=== PATIENT | male | born 1975 | race Caucasian/White ===

== ENCOUNTER 2019-09-21 13:03 | Emergency (ER) | payer OTHER ==
[~2019-09-21] VITALS: Ht 170.2 cm; Wt 79.0 kg
[2019-09-21 13:04] VITALS: BP 143/99
--- NOTE | 2019-09-21 14:05 | REP ---
Four views left wrist: 09/21/2019. Indication: Wrist pain following injury. Comparison: None. Findings: There is no acute fracture, subluxation or dislocation. Bony alignment is anatomic. No erosive osseous lesions are present. Impression: No acute fracture. Electronically Signed by Joselito lLoyd DO 09/21/2019 01:58 P
[2019-09-21] MEDS ORDERED: IBUPROFEN 600 MG TAB PO ONE (14:15)
[2019-09-21] MEDS ORDERED: IBUP-1022 PO (14:18)
== END 2019-09-21 14:26 | disposition home or self-care (01) ==
LOC: M ED 13:03
DX: S63.502A Unspecified sprain of left wrist, initial encounter (principal); X50.1XXA Overexertion from prolonged static or awkward postures, initial encounter; Y92.9 Unspecified place or not applicable

== ENCOUNTER 2020-12-28 13:05 | Emergency (ER) | payer BC, OTHER ==
[~2020-12-28] VITALS: Ht 170.2 cm; Wt 74.2 kg
[~2020-12-28 13:05] MED LIST: IBUP-1022 PO
[2020-12-28] MEDS ORDERED: ONDA-83 PO (13:18)
[2020-12-28] MEDS ORDERED: FLUT22IN (13:18)
[2020-12-28] MEDS ORDERED: PANT40TA29 PO (13:18)
[2020-12-28 14:31] LABS: BASO # 0.1 10^3/uL (0.0-0.2); BASO % 1.2 % (0.0-1.0); EOS # 0.3 10^3/uL (0.0-0.5); EOS % 5.2 % (0.0-3.0); HEMATOCRIT 42.8 % (42.0-52.0); HEMOGLOBIN 14.2 g/dl (13.5-17.5); LYMPH # 1.1 10^3/uL (1.5-5.0); LYMPH % 23.1 % (24.0-44.0); MEAN CORPUSCULAR HEMOGLOBIN 30.1 pg (27.0-33.0); MEAN CORPUSCULAR HGB CONC 33.2 g/dl (32.0-36.5); MEAN CORPUSCULAR VOLUME 90.7 fl (80.0-96.0); MONO # 0.4 10^3/uL (0.0-0.8); MONO % 9.1 % (0.0-5.0); NEUTROPHILS # 2.9 10^3/uL (1.5-8.5); NEUTROPHILS % 61.2 % (36.0-66.0); PLATELET COUNT, AUTOMATED 249 10^3/uL (150-450); RED BLOOD COUNT 4.72 10^6/uL (4.30-6.10); WHITE BLOOD COUNT 4.8 10^3/uL (4.0-10.0)
[2020-12-28 14:38] LABS: ALBUMIN 4.2 GM/DL (3.2-5.2); ALT/SGPT 29 U/L (12-78); BILIRUBIN,TOTAL 0.6 MG/DL (0.2-1.0); BLOOD UREA NITROGEN 17 MG/DL (7-18); CALCIUM LEVEL 9.4 MG/DL (8.5-10.1); CARBON DIOXIDE LEVEL 29 MEQ/L (21-32); CHLORIDE LEVEL 102 MEQ/L (98-107); CREATININE FOR GFR 1.04 MG/DL (0.70-1.30); GLOMERULAR FILTRATION RATE > 60.0 (>60); GLUCOSE, FASTING 90 MG/DL (70-100); POTASSIUM SERUM 3.7 MEQ/L (3.5-5.1); SODIUM LEVEL 140 MEQ/L (136-145)
[2020-12-28] MEDS ORDERED: NYST50SS PO (15:32)
[2020-12-28] MEDS ORDERED: SUCR1TA PO (15:32)
[2020-12-28 15:35] VITALS: BP 151/61
== END 2020-12-28 16:00 | disposition home or self-care (01) ==
LOC: M ED 13:05
DX: K21.00 Gastro-esophageal reflux disease with esophagitis, without bleeding (principal); J30.2 Other seasonal allergic rhinitis

== ENCOUNTER → 2021-01-11 | Outpatient (CLI) | payer BC ==
[~2021-01-11] MED LIST changes: +FLUT22IN; +NYST50SS PO; +ONDA-83 PO; +PANT40TA29 PO; +SUCR1TA PO
[2021-01-11 15:48] LABS: FREE T4 0.97 NG/DL (0.76-1.46); THYROID STIMULATING HORMONE 2.06 uIU/ML (0.358-3.740)
== END ==
LOC: M LAB 14:46
PROVIDERS: ATTEND Internal Medicine Gastroenterology
DX: R19.4 Change in bowel habit (principal)

== ENCOUNTER → 2021-01-19 | Outpatient (REF) | payer BC | LOC: M LAB REF 14:58 | PROVIDERS: ATTEND Internal Medicine Gastroenterology | DX: R19.4 Change in bowel habit (principal) ==

== ENCOUNTER → 2021-01-19 | Outpatient (CLI) | payer BC ==
[~2021-01-19] MED LIST changes: +GLUCAGON INJ 1MG VIAL As Ordered ONE; +ISOVUE-370 76% 100ML VIAL As Ordered ONE; +VoLumen 0.1% SUSPENSION 450ML BOTTLE As Ordered ONE
--- NOTE | 2021-01-20 07:00 | REP ---
INDICATION: HEMM OF ANUS AND RECTUM, CROHNS COMPARISON: None. TECHNIQUE: Axial contrast-enhanced images from the lung bases to the pubic symphysis with images obtained in arterial and portal venous phases of enhancement. Low-dose oral contrast material was administered prior to imaging. Coronal and sagittal reformations were obtained. FINDINGS: The small bowel is poorly distended but appears relatively normal and without obvious wall thickening, submucosal edema, perienteric inflammatory stranding, or areas of stricture/narrowing. The small bowel mesentery is relatively normal in appearance and without significant adenopathy or excessive stranding. The large bowel is normal in appearance and caliber without wall thickening. Normal terminal ileum and appendix are identified in the right lower quadrant. Liver, spleen, pancreas, bilateral adrenal glands and kidneys are normal. Few subcentimeter incidental hepatic cysts noted. Pelvis demonstrates normal bladder and prostate/seminal vesicles. No ascites, focal inflammatory stranding, adenopathy, free air. Normal aorta and vasculature without aneurysm or dissection. Musculoskeletal structures are intact and without acute osseous abnormality. Chronic sacroiliitis suggested and should be correlated clinically. Lung bases are clear. IMPRESSION: 1. Relatively normal appearance to the enteric system. 2. No acute abdominopelvic pathology appreciated. 3. Mild symmetric sacroiliitis should be correlated clinically. <Electronically signed by Chris Harris > 01/20/21 [id number]
== END ==
LOC: M RAD 11:34
PROVIDERS: ATTEND Internal Medicine Gastroenterology
DX: K62.5 Hemorrhage of anus and rectum (principal); K50.811 Crohn's disease of both small and large intestine with rectal bleeding
CPT/HCPCS: 74177; J1610; Q9967

== ENCOUNTER → 2021-02-23 | Outpatient (CLI) | payer BC ==
[~2021-02-23] MED LIST changes: -GLUCAGON INJ 1MG VIAL As Ordered ONE; +HYOS0.374; -ISOVUE-370 76% 100ML VIAL As Ordered ONE; +METO10TA2; -VoLumen 0.1% SUSPENSION 450ML BOTTLE As Ordered ONE
== END ==
LOC: M LABSMTC 10:23
PROVIDERS: ATTEND Anesthesiology
DX: Z01.812 Encounter for preprocedural laboratory examination (principal); Z20.822 Contact with and (suspected) exposure to COVID-19

== ENCOUNTER 2021-02-28 10:47 | Day surgery (SDC) | payer BC ==
[~2021-02-28] VITALS: Ht 170.2 cm; Wt 71.7 kg
[~2021-02-28 10:47] MED LIST changes: +NS 1,000 ML IV ONE
[2021-02-28] MEDS ORDERED: LIDOCAINE 2% 100MG/5ML SDV (FOR ANES.) As Ordered ONE (12:46)
[2021-02-28] MEDS ORDERED: propofoL 500 MG/50 ML VIAL As Ordered ONE (12:46)
[2021-02-28] MEDS ORDERED: fentaNYL 100 MCG/2 ML INJECTION (J3010) As Ordered ONE (12:46)
--- NOTE | 2021-02-28 13:02 | ROOR ---
Patient Name: Luis Gonzalez Procedure Date: 02/28/2021 12:42 PM Date of : 1975 Age: 45 Room: [facility] Gender: Male Note Status: Finalized Procedure: Upper GI endoscopy Indications: Functional Dyspepsia, Follow-up of eosinophilic esophagitis, Ina Rodriguez, Nausea Providers: Loi CRAWFORD MD Referring MD: Ronit López Md Requesting Provider: Medicines: Monitored Anesthesia Care Complications: No immediate complications. Procedure: Pre-Anesthesia Assessment: - The heart rate, respiratory rate, oxygen saturations, blood pressure, adequacy of pulmonary ventilation, and response to care were monitored throughout the procedure. The Endoscope was introduced through the mouth, and advanced to the third part of duodenum. The upper GI endoscopy was accomplished without difficulty. The patient tolerated the procedure well. Findings: The Z-line was variable and was found 39 cm from the incisors. Biopsies were taken with a cold forceps for r/o short barretts esophagus. The examined esophagus was normal. This was biopsied with a cold forceps for r/o eosinophilic esophagitis. The entire examined stomach was normal. Biopsies were taken with a cold forceps for Helicobacter pylori testing. The examined duodenum was normal. Biopsies for histology were taken with a cold forceps for evaluation of celiac disease. Impression: - Z-line variable, 39 cm from the incisors. Biopsied. - Normal esophagus. Biopsied. - Normal stomach. Biopsied. - Normal examined duodenum. Biopsied. Recommendation: - Continue present medications. - Observe patient's clinical course. - Telephone endoscopist for pathology results in 2 weeks. Procedure Code(s): --- Professional --- 36348, Esophagogastroduodenoscopy, flexible, transoral; with biopsy, single or multiple Diagnosis Code(s): --- Professional --- K22.8, Other specified diseases of esophagus K30, Functional dyspepsia K20.0, Eosinophilic esophagitis R11.0, Nausea CPT copyright 2019 [employer] [employer]. All rights reserved. The codes documented in this report are preliminary and upon tie puller review may be revised to meet current compliance requirements. Loi Crawford MD Loi CRAWFORD MD 02/28/2021 1:01:55 PM Electronically signed by Loi CRAWFORD MD Number of Addenda: 0 Note Initiated On: 02/28/2021 12:42 PM Estimated Blood Loss: Estimated blood loss: none.
[2021-02-28 13:16] VITALS: BP 99/64
--- NOTE | 2021-02-28 13:16 | ROOR ---
Patient Name: Luis Gonzalez Procedure Date: 02/28/2021 12:44 PM Date of : 1975 Age: 45 Room: [facility] Gender: Male Note Status: Finalized Procedure: Colonoscopy Indications: Generalized abdominal pain, Clinically significant diarrhea of unexplained origin, Suspected irritable bowel syndrome, Change in bowel habits Providers: Loi CRAWFORD MD Referring MD: Ronit López Md Requesting Provider: Medicines: Monitored Anesthesia Care Complications: No immediate complications. Procedure: Pre-Anesthesia Assessment: - The heart rate, respiratory rate, oxygen saturations, blood pressure, adequacy of pulmonary ventilation, and response to care were monitored throughout the procedure. The Colonoscope was introduced through the anus and advanced to 15 cm into the ileum. The colonoscopy was performed without difficulty. The patient tolerated the procedure well. The quality of the bowel preparation was good. Findings: The perianal and digital rectal examinations were normal. A diffuse area of mildly erythematous mucosa was found in the rectum. This was biopsied with a cold forceps for histology. Internal hemorrhoids were found during retroflexion. The hemorrhoids were medium-sized. The colon exam was otherwise without abnormality on direct and retroflexion views. The terminal ileum appeared normal. Biopsies for histology were taken with a cold forceps from the colon and terminal ileum for evaluation of microscopic enterocolitis. Impression: - Internal hemorrhoids. - Mild erythematous mucosa in the rectum. Biopsied. - The colo examination was otherwise normal on direct and retroflexion views. - The terminal ileum examination was normal. - Biopsies were taken with a cold forceps from the colon and terminal ileum for evaluation of microscopic colitis. - (Irritable Bowel Syndrome/IBS suspected.) Recommendation: - Telephone endoscopist for pathology results in 2 weeks. - Continue present medications. - Lactose free diet. - Use fiber, for example Citrucel, Fibercon, Konsyl or Metamucil. Procedure Code(s): --- Professional --- 78803, Colonoscopy, flexible; with biopsy, single or multiple Diagnosis Code(s): --- Professional --- R19.4, Change in bowel habit R19.7, Diarrhea, unspecified R10.84, Generalized abdominal pain K64.8, Other hemorrhoids K62.89, Other specified diseases of anus and rectum CPT copyright 2019 [employer]. All rights reserved. The codes documented in this report are preliminary and upon data entry review may be revised to meet current compliance requirements. Loi Crawford MD Loi CRAWFORD MD 02/28/2021 1:15:30 PM Electronically signed by Loi CRAWFORD MD Number of Addenda: 0 Note Initiated On: 02/28/2021 12:44 PM Estimated Blood Loss: Estimated blood loss: none.
== END 2021-02-28 14:00 | disposition home or self-care (01) ==
LOC: M OPP 10:47
PROVIDERS: ATTEND Internal Medicine Gastroenterology
DX: K62.89 Other specified diseases of anus and rectum (principal); K64.8 Other hemorrhoids; R10.84 Generalized abdominal pain; R19.7 Diarrhea, unspecified; K22.8 Other specified diseases of esophagus; K30 Functional dyspepsia; K20.0 Eosinophilic esophagitis; R11.0 Nausea
CPT/HCPCS: 43239; 45380; 88305; J3010